=== PATIENT | male | born 1945 ===

== ENCOUNTER 2017-10-16 11:07 | Inpatient (IN) | payer OTHER ==
[~2017-10-16] VITALS: Ht 162.6 cm; Wt 65.3 kg
[2017-10-16] MEDS ORDERED: ENALAPRIL MALEA20 MG PO (12:08)
[2017-10-16] MEDS ORDERED: METFORMIN HCL850 MG PO (12:08)
[2017-10-16] MEDS ORDERED: CYMBALTA60 MG PO (12:09)
[2017-10-16] MEDS ORDERED: TOPROL XL50 M1 PO (12:09)
[2017-10-23] MEDS ORDERED: DOCUSATE SODIU100 MG PO (10:45)
[2017-10-23] MEDS ORDERED: GABAPENTIN800 MG PO (10:45)
[2017-10-23] MEDS ORDERED: AMOX-CLAV 875-1 EACH PO (10:46)
[2017-10-23] MEDS ORDERED: PERCOCET 5-3251 EACH PO (10:47)
[2017-10-23] MEDS ORDERED: CLONAZEPAM1 MG PO (10:47)
== END 2017-10-23 13:42 | disposition home or self-care (01) | DRG 460 ==
LOC: O/R 10-22 05:20 → SURG 10-22 05:20
PROVIDERS: Orthopaedic Surgery Orthopaedic Surgery of the Spine
PROC: 0SG10AJ Fusion of 2 or more Lumbar Vertebral Joints with Interbody Fusion Device, Posterior Approach, Anterior Column, Open Approach (ICD-10-PCS; 2017-10-22)
PROC: 0ST20ZZ Resection of Lumbar Vertebral Disc, Open Approach (ICD-10-PCS; 2017-10-22)
PROC: 07DS3ZZ Extraction of Vertebral Bone Marrow, Percutaneous Approach (ICD-10-PCS; 2017-10-22)
PROC: 0SG10A0 Fusion of 2 or more Lumbar Vertebral Joints with Interbody Fusion Device, Anterior Approach, Anterior Column, Open Approach (ICD-10-PCS; principal; 2017-10-22 13:00)
DX: M47.26 Other spondylosis with radiculopathy, lumbar region (principal); M51.16 Intervertebral disc disorders with radiculopathy, lumbar region; M48.061 Spinal stenosis, lumbar region without neurogenic claudication; E11.9 Type 2 diabetes mellitus without complications; I10 Essential (primary) hypertension